=== PATIENT | female | born 1975 | race Caucasian/White ===

== ENCOUNTER → 2018-06-26 | Outpatient (CLI) | payer OTHER | LOC: CIMAGING 08:42 | PROVIDERS: ATTEND Family Medicine | DX: Z12.31 Encounter for screening mammogram for malignant neoplasm of breast (principal) ==

== ENCOUNTER 2019-03-27 10:16 | Emergency (ER) | payer OTHER ==
[2019-03-27] MEDS ORDERED: ONDANSETRON 4 MG/2 ML VIAL IVP ONE (10:54)
[2019-03-27] MEDS ORDERED: NS 1,000 ML IV ONE (10:54)
[2019-03-27] MEDS ORDERED: IOPAMIDOL (ISOVUE-300) 100 ML BTL ONE (11:05)
--- NOTE | 2019-03-27 12:08 | EDPHY ---
H & P Stated Complaint: RLQ pain since last pm . comes and goes. Time Seen by Provider: 03/27/19 10:21 HPI/ROS: 43-year-old female with a history of irritable bowel syndrome presents complaining of right lower quadrant abdominal pain for the last 2 days intermittent in nature. She states she often has diarrhea that is normal for her. She denies current constipation, fevers chills or vomiting. She states pain has caused some nausea. She has had a prior hysterectomy in approximately 2006 . Review of systems As per HPI General no fever no chills no weakness HEENT no eye pain no eye discharge. No eye redness, no sore throat Respiratory no cough, no shortness of breath Cardiac no chest pain, no peripheral edema GI positive abdominal pain, no diarrhea, no constipation, positive nausea, no vomiting no flank pain, no hematuria, no dysuria Musculoskeletal no myalgias, no joint pain Heme no easy bruising, no easy bleeding Endo no polyuria, no polydipsia Skin no rashes, no pruritus Neuro no syncope, no dizziness, no headaches Psych is no suicidal ideation, no homicidal ideation Source: Patient Exam Limitations: No limitations - Personal History LMP (Females 10-55): Hysterectomy Current Tetanus/Diphtheria Vaccine: Unsure Current Tetanus Diphtheria and Acellular Pertussis (TDAP): Unsure - Medical/Surgical History Hx Asthma: No Hx Chronic Respiratory Disease: No Hx Diabetes: No Hx Cardiac Disease: No Hx Renal Disease: No Hx Cirrhosis: No Hx Alcoholism: No Hx HIV/AIDS: No Hx Splenectomy or Spleen Trauma: No Other PMH: csec x 2. hysterectomy - Family History Significant Family History: No pertinent family hx - Social History Smoking Status: Never smoked Alcohol Use: None Drug Use: None - Physical Exam Exam: 43-year-old female alert and oriented no acute distress nontoxic appearance, afebrile HEENT atraumatic normocephalic, extraocular muscles intact, anicteric Oropharynx negative for erythema negative exudate, tolerating her own secretions Neck supple no meningismus Lungs clear to auscultation bilaterally Heart regular rate and rhythm without murmur rub or gallop Abdomen nondistended normoactive bowel sounds soft, positive McBurney's point tenderness as well as mild periumbilical tenderness however no guarding no rebound, negative Rovsing's Back no CVA tenderness, no step-offs, no spinal tenderness Extremities no cyanosis clubbing or edema Neuro alert and oriented, no focal deficits Constitutional: Initial Vital Signs Temperature (C) 36.7 C 03/27/19 10:28 Heart Rate 88 03/27/19 10:28 Respiratory Rate 16 03/27/19 10:28 Blood Pressure 136/85 H 03/27/19 10:28 O2 Sat (%) 98 03/27/19 10:28 O2 Delivery Mode Room Air Allergies/Adverse Reactions: Penicillins Allergy (Verified 03/27/19 10:31) Home Medications: Medication Instructions Recorded Hrt 03/27/19 Medical Decision Making - Diagnostics Imaging Results: Imaging Impressions Abdomen CT 03/27/19 10:54 Impression: 1. Constipation 2. Gallbladder polyp versus stone. Ultrasound is recommended for further evaluation. 3. 5 mm right middle lobe nodule. If the patient is a smoker or is high risk, unenhanced low dose chest CT for follow up in 12 months is considered optional. Otherwise, no further follow up is needed per Fleischner Society criteria. 4. Additional findings as above. Findings discussed with Susan Aviles MD, 03/27/2019 at 11:58. ED Course/Re-evaluation: Patient seen and evaluated for right lower quadrant abdominal pain of approximately 2 days duration intermittent in nature. IV established, labs drawn CBC CMP within normal limits CT abdomen and pelvis with contrast to rule out appendicitis performed CT scan shows a possible polyp in the gallbladder, discussed with patient and advised to get an ultrasound on a nonemergent basis A small 5 mm nodule in the right lung also advised for follow up within 1 year through her primary care on a nonemergent basis Negative for appendicitis positive for constipation Impression Irritable bowel syndrome, constipation Plan Discharge home Follow-up primary care physician Return as needed Differential Diagnosis: Differential diagnosis considered but not limited to: Cholecystitis, gastritis, appendicitis, diverticulitis, gastroenteritis, irritable bowel syndrome - Data Points Laboratory Results: 03/27/19 11:08 POC Sodium 144 mEq/L mEq/L (135-145) POC Potassium 3.9 mEq/L mEq/L (3.3-5.0) POC Chloride 106.0 mEq/L mEq/L (97-110) POC Total CO2 28 mEq/L mEq/L (22-31) POC BUN 13 mg/dL mg/dL (7-23) POC Creatinine 1.0 mg/dL mg/dL (0.6-1.0) POC Glucose 91 mg/dL mg/dL (70-100) POC Calcium 10.0 mg/dL mg/dL (8.5-10.4) POC Total Bilirubin 1.5 mg/dL H mg/dL (0.1-1.4) POC AST 32 IU/L IU/L (14-46) POC ALT 17 IU/L IU/L (9-52) POC Alk Phosphatase 78 IU/L IU/L (38-126) POC Total Protein 7.2 g/dL g/dL (6.3-8.2) POC Albumin 4.4 g/dL g/dL (3.5-5.0) Medications Given: Discontinued Medications Sodium Chloride (Ns) 1,000 mls @ 0 mls/hr IV ONCE ONE PRN Reason: Wide Open Stop: 03/27/19 10:55 Last Admin: 03/27/19 11:14 Dose: 1,000 mls Ondansetron HCl (Zofran) 4 mg IVP EDNOW ONE Stop: 03/27/19 10:55 Last Admin: 03/27/19 11:14 Dose: 4 mg Point of Care Test Results: CBC CBC Collection Date 03/27/19 CBC Collection Time 11:05 WBC 6.32 RBC 4.76 HGB 15.1 HCT 42.7 PLT 214 Neut # 4.12 Neut 65.2 LYMPH # 1.67 LYMPH 26.4 MCV 89.7 Chemistry 03/27/19 11:08 POC Sodium 144 mEq/L mEq/L (135-145) POC Potassium 3.9 mEq/L mEq/L (3.3-5.0) POC Chloride 106.0 mEq/L mEq/L (97-110) POC Total CO2 28 mEq/L mEq/L (22-31) POC BUN 13 mg/dL mg/dL (7-23) POC Creatinine 1.0 mg/dL mg/dL (0.6-1.0) POC Glucose 91 mg/dL mg/dL (70-100) POC Calcium 10.0 mg/dL mg/dL (8.5-10.4) POC Total Bilirubin 1.5 mg/dL H mg/dL (0.1-1.4) POC AST 32 IU/L IU/L (14-46) POC ALT 17 IU/L IU/L (9-52) POC Alk Phosphatase 78 IU/L IU/L (38-126) POC Total Protein 7.2 g/dL g/dL (6.3-8.2) POC Albumin 4.4 g/dL g/dL (3.5-5.0) Departure - Departure Disposition: Home, Routine, Self-Care Clinical Impression: Right lower quadrant abdominal pain, Constipation, History of IBS Condition: Good Instructions: Irritable Bowel Syndrome (ED), Constipation (ED) Referrals: Gordon Evans DO [Primary Care Provider] - As per Instructions
[2019-03-27 12:18] VITALS: BP 122/76
== END 2019-03-27 12:15 | disposition home or self-care (01) ==
LOC: CED 10:16
DX: K59.00 Constipation, unspecified (principal); K58.9 Irritable bowel syndrome, unspecified; R91.1 Solitary pulmonary nodule
CPT/HCPCS: 74177-PO; 80053-ER; 85025-QW-ER; 96361-ER; 96374-ER; 99285-ER; J2405; Q9967